=== PATIENT | male | born 1995 | race Asian ===

== ENCOUNTER 2020-08-11 06:49 | Day surgery (SDC) | payer BC, OTHER ==
[2020-08-11] VITALS (9 sets, daily range): BP systolic 110–132; BP diastolic 55–82
[~2020-08-11] VITALS: Ht 182.9 cm; Wt 100.2 kg
[~2020-08-11 06:49] MED LIST: CLARITIN-D 121 EAC1 ORAL; HUMIRA40 MG/0.2 SUBQ; METRONIDAZOLE500 MG ORAL; NORCO 5-325 TA1 EACH ORAL; TRAMADOL HCL50 MG ORAL
[2020-08-11] MEDS ORDERED: Lidocaine 2% MPF 5ml Vial INJ ONE (06:50)
[2020-08-11] MEDS ORDERED: LR 1000ml ONE (06:50)
[2020-08-11] MEDS ORDERED: LR 1000ml 1,000 ML IVLG SCH ×2 (07:00→08:00)
[2020-08-11] MEDS ORDERED: CETIRIZINE HCL10 M1 PO (07:28)
[2020-08-11] MEDS ORDERED: Midazolam 2mg/2ml Inj IVP PRN (08:00)
[2020-08-11] MEDS ORDERED: DiphenhydrAMINE 50mg/ml Inj IVP PRN (08:00)
[2020-08-11] MEDS ORDERED: Atropine Inj 1mg/10ml Syr IVP PRN (08:00)
[2020-08-11] MEDS ORDERED: fentaNYL 100 mcg/2 mL IV PRN (08:00)
[2020-08-11] MEDS ORDERED: Labetalol 5mg/ml 20ml vial IV PRN (08:00)
--- NOTE | 2020-08-11 08:07 | Pre-Procedure Note/Attestation ---
Pre-Procedure Note/Attestation Complete Prior to Procedure Planned Procedure: not applicable Procedure Narrative: colon Indications for Procedure Pre-Operative Diagnosis: shanique Attestation I attest that I discussed the nature of the procedure; its benefits; risks and complications; and alternatives (and the risks and benefits of such alternatives), prior to the procedure, with the patient (or the patient's legal surgical sales representative). I attest that, if there was a reasonable possibility of needing a blood transfusion, the patient (or the patient's legal surgical sales representative) was given the [facility] standardized written summary, pursuant to the Randy Kaser Blood Safety Act ([place] Health and Safety Code # 1645, as amended). I attest that I re-evaluated the patient just prior to the surgery and that there has been no change in the patient's H&P, except as documented below: Funmi Groves MD Aug 11, 2020 08:07
--- NOTE | 2020-08-11 08:08 | Short Stay Surgery H&P ---
History of Present Illness History of Present Illness Chief Complaint see attached H&P HPI Tanmay Iam Cuevas is a 25 year old male who was admitted on for Chrons Disease Patient History Allergies: Coded Allergies: LATEX (Verified Allergy, Severe, hives, 08/25/19) Medication History Scheduled Adalimumab (Humira), 40 MG SUBQ Q14D, (Reported) Scheduled PRN Cetirizine Hcl (ZyrTEC*), 10 MG PO PRN PRN for sneezing; allergy symptoms, (Reported) Discontinued Medications Hydrocodone Bit/Acetaminophen 5-325* (Beaver 5-325*), 1 TAB ORAL Q4H PRN for For Pain, (Reported) Discontinued Reason: Pt stopped taking med Loratadine/Pseudoephedrine (Claritin-D 12 Hour Tablet), 1 TAB ORAL NEEDED, (Reported) Discontinued Reason: Pt stopped taking med Metronidazole* (Flagyl*), 500 MG ORAL THREE TIMES A DAY Discontinued Reason: Pt stopped taking med Tramadol Hcl* (Ultram*), 50 MG ORAL Q6H PRN for For Pain Discontinued Reason: Pt stopped taking med Physical Exam Vital Signs Last Vital Signs Date Time Temp Pulse Resp B/P (MAP) Pulse Ox O2 Delivery O2 Flow Rate FiO2 08/11/20 07:23 Room Air 08/11/20 07:21 97.6 73 18 132/72 99 Plan Attestation Are the patient's medical conditions optimized for surgery? Funmi Groves MD Aug 11, 2020 08:08
--- NOTE | 2020-08-11 08:41 | Endoscopy Procedure Note ---
Endoscopy Procedure Note General Procedures Performed: colonoscopy Operative Findings/Diagnosis: s/p ileo coloect, one TI erosion, rectal polyp- snared, RND bx Specimen: yes Pt Tolerated Procedure Well: Yes Estimated Blood Loss: none Anesthesia Anesthesiologist: Francis Major Anesthesia: MAC, moderate sedation Medications Medication Given: see anesthesia record Inserted Devices Implant(s) used?: No GI Core Measures 50 yrs or older w/o bx or poly: Not Applicable 10yrs. F/U recommended: Not Applicable Funmi Groves MD Aug 11, 2020 08:41
--- NOTE | 2020-08-11 08:42 | Brief Operative Note ---
Immediate Post Operative Note Operative Note Chief Complaint: CD Pre-op Diagnosis: cohns Procedure: colon bx polypectomy Post-op Diagnosis: CD Surgeon: bhavesh Specimen: yes Complications: none Condition: stable Fluids: per ANESTHESIA Implant(s) used?: No Funmi Groves MD Aug 11, 2020 08:42
--- NOTE | 2020-08-11 09:00 | Anethesia Preoperative Eval ---
Anesthesia Pre-op PMH/ROS General Date of Evaluation: Aug 11, 2020 Time of Evaluation: 07:40 Anesthesiologist: elke ASA Score: ASA 3 Mallampati Score Class I : Soft palate, uvula, fauces, pillars visible Class II: Soft palate, uvula, fauces visible Class III: Soft palate, base of uvula visible Class IV: Only hard plate visible Mallampati Classification: Class II Surgeon: bhavesh Diagnosis: crohn's disease Surgical Procedure: colonoscopy Anesthesia History: none Social History: smoking - nonsmoker Family History: no anesthesia problems Allergies: Coded Allergies: LATEX (Verified Allergy, Severe, hives, 08/25/19) Medications: see eMAR Patient NPO?: Yes Past Medical History Pulmonary: Reports: asthma Gastrointestinal/Genitourinary: Reports: other - crohn's disease PSxH Narrative: partial colectomy Anesthesia Pre-op Phys. Exam Physician Exam Last Vital Signs Date Time Temp Pulse Resp B/P (MAP) Pulse Ox O2 Delivery O2 Flow Rate FiO2 08/11/20 08:53 74 16 126/71 98 Simple Mask 6 08/11/20 08:43 97.2 Constitutional: NAD Neurologic: CN 2-12 intact Cardiovascular: RRR Respiratory: CTA Gastrointestinal: S/NT/ND Airway Exam Mallampati Score: Class II MO: full Neck: flexible TMD: 2fb Teeth: intact Anesthesia Pre-op A/P Labs Microbiology Date/Time Source Procedure Growth Status 08/09/20 08:21 Nasopharynx SARS-CoV-2 RdRp Gene Assay - Final Complete Risk Assessment & Plan Assessment: asa3 Plan: mac Status Change Before Surgery: No Pre-Antibiotics Drug: Ashley Wilkerson MD Aug 11, 2020 09:00
--- NOTE | 2020-08-11 09:02 | Immediate Post-Op Evaluation ---
Immediate Post-Op Evalulation Immediate Post-Op Evalulation Procedure: colonoscopy w/bx Date of Evaluation: Aug 11, 2020 Time of Evaluation: 08:55 IV Fluids: 500ml lr Blood Products: none Estimated Blood Loss: negligible Blood Pressure Systolic: 127 Blood Pressure Diastolic: 73 Pulse Rate: 88 Respiratory Rate: 18 O2 Sat by Pulse Oximetry: 99 Temperature (Fahrenheit): 97.2 Pain Score (1-10): 0 Nausea: No Vomiting: No Complications none Patient Status: awake, reacts, patent Hydration Status: adequate Drug: Ashley Wilkerson MD Aug 11, 2020 09:02
--- NOTE | 2020-08-11 09:04 | 48 Hour Post Anesthesia Eval ---
Post Anesthesia Evaluation Procedure: colonoscopy w/bx Date of Evaluation: Aug 11, 2020 Time of Evaluation: 09:02 Blood Pressure Systolic: 126 0: 71 Pulse Rate: 74 Respiratory Rate: 18 Temperature (Fahrenheit): 97.2 O2 Sat by Pulse Oximetry: 99 Airway: patent Nausea: No Vomiting: No Pain Intensity: 0 Hydration Status: adequate Cardiopulmonary Status: stable Mental Status/LOC: patient returned to baseline Post-Anesthesia Complications: none Follow-up care needed: N/A Ashley Villarreal MD Aug 11, 2020 09:03
--- NOTE | 2020-08-11 16:15 | Procedure Note ---
DATE OF PROCEDURE: 08/11/2020 SURGEON: Funmi Groves MD PROCEDURE: Colonoscopy with biopsy and polypectomy. ANESTHESIA: Per Dr. Koo. PRE-ENDOSCOPIC DIAGNOSIS: Crohn disease. This colonoscopy is being performed to evaluate status of inflammation. POST-ENDOSCOPIC DIAGNOSES: 1. Status post ileocolonic anastomosis as expected. 2. A single shallow aphthous ulcer measuring 2-3 mm in the very distal area close to the anastomosis, status post biopsy. 3. Mild erosive changes on the anastomotic line, which is typically seen in this type of surgery. 4. A 4-5 mm pedunculated polyp in the rectum, status post cold snare polypectomy. 5. Status post random biopsies of the normal-appearing mucosa in the terminal ileum, right colon, left colon, and rectum. DESCRIPTION OF PROCEDURE: The procedure, its risks, indications, alternatives, and possible complications including but not limited to bleeding, infection, perforation, , and anesthesia complications were explained to the patient and informed consent was obtained. The patient was then sedated in the left lateral decubitus position and rectal exam was done. The diagnostic colonoscope was then introduced into the rectum and advanced into the terminal ileum without difficulty. The colonoscope was then gradually withdrawn and the mucosa examined carefully. The examination of the colonic mucosa revealed the above findings. The entire examination showed excellent response to current medication for Crohn disease, as there were no inflammatory changes and there was only one single shallow aphthous ulcer seen in the terminal ileum close to the anastomosis. The patient was sent to recovery in good condition. COMPLICATIONS: None. RECOMMENDATIONS: 1. Continue to follow up biopsy results. 2. Continue current medication regimen. 3. Outpatient followup. Funmi Groves M.D. DR: Alberta JOB#: [id number] CC:
== END 2020-08-11 09:55 | disposition home or self-care (01) ==
LOC: GAS 06:49
DX: K50.90 Crohn's disease, unspecified, without complications (principal); K63.5 Polyp of colon; Z91.040 Latex allergy status; Z79.899 Other long term (current) drug therapy; Z90.49 Acquired absence of other specified parts of digestive tract
CPT/HCPCS: 45380; 45385; 94003; J2704; J7120; U0002; 94150